=== PATIENT | female | born 1970 | race Two or more races ===

== ENCOUNTER 2018-03-03 15:55 | Emergency (ER) | payer BC, OTHER ==
[~2018-03-03] VITALS: Ht 162.6 cm; Wt 63.1 kg
[2018-03-03 17:01] LABS: BASOPHILS # (AUTO) 0.01 x10^3/uL (0-0.1); BASOPHILS % (AUTO) 0 % (0-1); EOSINOPHILS # (AUTO) 0.03 x10^3/uL (0-0.4); EOSINOPHILS % (AUTO) 0 % (1-7); LYMPHOCYTES # (AUTO) 0.79 x10^3/uL (1-3.4); LYMPHOCYTES % (AUTO) 10 % (22-44); MD NO; MEAN CORPUSCULAR HEMOGLOBIN 28.2 pg (27.0-34.8); MEAN CORPUSCULAR HGB CONC 32.8 g/dL (32.4-35.8); MEAN CORPUSCULAR VOLUME 86.1 fL (80-100); MEAN PLATELET VOLUME 9.1 fL (7.4-10.4); MONOCYTES # (AUTO) 0.27 x10^3/uL (0.2-0.8); MONOCYTES % (AUTO) 3 % (2-9); NEUTROPHILS % (AUTO) 86 % (42-75); PLATELET COUNT 236 x10^3/uL (130-400); RED BLOOD COUNT 4.06 x10^6/uL (3.82-5.3); RED CELL DISTRIBUTION WIDTH 13.5 % (9.6-15.2)
[2018-03-03 17:08] LABS: ALANINE AMINOTRANSFERASE 25 U/L (12-78); ALBUMIN 3.7 g/dL (3.4-5.0); ANION GAP 8 mmol/L (5-15); CALCIUM 8.4 mg/dL (8.5-10.1); CHLORIDE 106 mmol/L (98-107); CREATININE 0.55 mg/dL (0.55-1.02)
[2018-03-03 17:13] LABS: ALKALINE PHOSPHATASE 54 U/L (45-117); TOTAL PROTEIN 7.3 g/dL (6.4-8.2)
[2018-03-03 17:42] LABS: MICROSCOPIC AUTO
[2018-03-03] MEDS ORDERED: BISM262O20 PO (17:42)
[2018-03-03 17:45] LABS: CULTURE INDICATED? NO
[2018-03-03] MEDS ORDERED: KETOROLAC 30 MG/1 ML ONE (18:36)
[2018-03-03] MEDS ORDERED: KETOROLAC 30 MG/1 ML IM ONE (19:00)
[2018-03-03 21:36] VITALS: BP 123/82
== END 2018-03-03 21:38 | disposition home or self-care (01) ==
LOC: ED 18:27
DX: E86.0 Dehydration (principal); R11.2 Nausea with vomiting, unspecified; R19.7 Diarrhea, unspecified; R10.11 Right upper quadrant pain; R10.31 Right lower quadrant pain
CPT/HCPCS: 36415; 74176; 76700; 80053; 81001; 83690; 84703; 85025; 96372; 99285; J1885